=== PATIENT | female | born 1980 | race Two or more races ===

== ENCOUNTER 2025-08-07 00:18 | Emergency (ER) | payer OTHER ==
[~2025-08-07] VITALS: Ht 170.2 cm; Wt 61.4 kg
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
[2025-08-07] MEDS ORDERED: METH4PAK PO (01:57)
[2025-08-07] MEDS ORDERED: CEFD300C2 PO (02:02)
[2025-08-07 02:06] VITALS: BP 126/83; PULSE 96; RESP 19; TEMP 98.1; O2SAT 98
[2025-08-07] MEDS: KETOROLAC TROMETH 60MG/2ML VIAL IM ONE (02:06)
== END 2025-08-07 02:15 | disposition home or self-care (01) ==
LOC: ER 00:18
DX: S80.02XA Contusion of left knee, initial encounter (principal); M79.89 Other specified soft tissue disorders; Z79.899 Other long term (current) drug therapy; V26.49XA Other motorcycle driver injured in collision with other nonmotor vehicle in traffic accident, initial encounter; Y93.89 Activity, other specified; Y92.89 Other specified places as the place of occurrence of the external cause; Y99.8 Other external cause status
CPT/HCPCS: 73562; 96372; 99283; J1885